=== PATIENT | female | born 1955 | race American Indian/Alaskan Native ===

== ENCOUNTER 2016-10-09 04:55 | Emergency (ER) | payer MEDICAID, OTHER ==
[2016-10-09 05:15] VITALS: TEMP 98.4
[2016-10-09 05:17] VITALS: O2SAT 98
--- NOTE | 2016-10-09 05:31 | C.PDOC ---
History Of Present Illness 61 y/o F c PMHx HTN p/w HTN since this morning. Patient states blood pressure was 200/100. She denies any symptoms. She states she just recently got out of a nursing home and has not taken her blood pressure medication in a year but is working on it "one thing at a time." Denies fever, chest pain, vision change, numbness, weakness. Time Seen by Provider: 10/09/16 05:24 Chief Complaint (Nursing): High Blood Pressure Past Medical History Vital Signs: Last Vital Signs Temp 98.4 F 10/09/16 04:58 Pulse 90 10/09/16 05:08 Resp 15 10/09/16 05:08 BP 168/97 H 10/09/16 05:08 Pulse Ox 98 10/09/16 05:31 - Medical History PMH: HTN, Hypercholesterolemia Family History: States: Unknown Family Hx - Social History Hx Alcohol Use: No Hx Substance Use: No - Immunization History Hx Tetanus Toxoid Vaccination: No Hx Influenza Vaccination: No Hx Pneumococcal Vaccination: No Review Of Systems Except As Marked, All Systems Reviewed And Found Negative. Constitutional: Negative for: Fever Cardiovascular: Negative for: Chest Pain Physical Exam - Physical Exam Appears: No Acute Distress Skin: Normal Color Head: Normacephalic Oral Mucosa: Moist Neck: Supple Cardiovascular: Rhythm Regular Respiratory: No Accessory Muscle Use Gastrointestinal/Abdominal: Soft Extremity: Other (L arm amputation) Neurological/Psych: Normal Speech, Normal Motor, Normal Sensation, Other (No focal deficit) ED Course And Treatment O2 Sat by Pulse Oximetry: 98 Medical Decision Making Medical Decision Making: Educated on HTN management and that it is typically asymptomatic. Patient states she will f/u with primary care. Instructed to return for chest pain, dyspnea, vision change, numbness, weakness, or any other problem. Disposition - Disposition Disposition: HOME/ ROUTINE Disposition Time: 05:30 Condition: STABLE Prescriptions: Carvedilol [Coreg] 6.25 mg PO BID #14 tab Instructions: Chronic Hypertension (ED) - Clinical Impression Clinical Impression: HTN (hypertension)
[2016-10-09 05:47] VITALS: BP 166/86; PULSE 83; RESP 20
== END 2016-10-09 06:00 | disposition home or self-care (01) ==
LOC: C.ER 04:55
DX: I10 Essential (primary) hypertension (principal)

== ENCOUNTER 2016-10-16 09:17 | Observation (INO) | payer SELFPAY ==
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
[2016-10-16 10:37] LABS: BASO # 0.1 K/uL (0.0-0.2); BASO % 0.8 % (0.0-2.0); EOS # 0.1 K/uL (0.0-0.7); EOS % 0.5 % (0.0-4.0); HEMOGLOBIN 14.1 g/dL (11.0-16.0); LYMPH # 2.4 K/uL (1.0-4.3); LYMPH % 18.3 % (20.0-40.0); MEAN CELL VOLUME 91.5 fL (81.0-99.0); MEAN CORPUSCULAR HEMOGLOBIN 30.1 pg (27.0-31.0); MEAN CORPUSCULAR HGB CONC 32.9 g/dL (33.0-37.0); MEAN PLATELET VOLUME 10.3 fL (7.2-11.7); MONO # 0.9 K/uL (0.0-0.8); MONO % 7.1 % (0.0-10.0); NEUT # 9.4 K/uL (1.8-7.0); NEUT % 73.3 % (50.0-75.0); NRBC % 0.1 % (0.0-2.0); RBC 4.68 Mil/uL (3.80-5.20); RED CELL DISTRIBUTION WIDTH 14.3 % (11.5-14.5); WHITE BLOOD COUNT 12.9 K/uL (4.8-10.8)
[2016-10-16 10:49] LABS: ALBUMIN 4.2 g/dL (3.5-5.0)
[2016-10-16 10:52] LABS: AST/SGOT 30 U/L (14-36); GFR AFRICAN-AMERICAN > 60; GFR NON-AFRICAN AMERICAN > 60
[2016-10-16 10:53] LABS: ALT/SGPT 19 U/L (9-52); BLOOD UREA NITROGEN 13 mg/dL (7-17); CALCIUM 9.4 mg/dl (8.6-10.4)
[2016-10-16 12:58] LABS: SQUAMOUS EPITHIAL 1 /hpf (0-5); URINE BILIRUBIN NEGATIVE (NEGATIVE); URINE BLOOD NEGATIVE (NEGATIVE); URINE CLARITY Clear (Clear); URINE COLOR Yellow (YELLOW); URINE GLUCOSE (UA) NORMAL (Normal); URINE LEUKOCYTE ESTERASE NEG Leu/uL (Negative); URINE NITRATE NEGATIVE (NEGATIVE); URINE PROTEIN NEGATIVE (NEGATIVE); URINE UROBILINOGEN NORMAL mg/dL (0.2-1.0)
[2016-10-16 13:05] LABS: BENZODIAZEPINES, UR NEGATIVE (NEGATIVE)
[2016-10-16 13:06] LABS: BARBITURATES, UR NEGATIVE (NEGATIVE)
[2016-10-16 13:07] LABS: OPIATES, UR NEGATIVE (NEGATIVE)
[2016-10-16 13:08] LABS: PHENCYCLIDINE, UR NEGATIVE (NEGATIVE)
--- NOTE | 2016-10-16 13:14 | RAD ---
HISTORY: for admit COMPARISON: No prior. FINDINGS: LUNGS: No active pulmonary disease. PLEURA: No significant pleural effusion identified, no pneumothorax apparent. CARDIOVASCULAR: Mild cardiomegaly. No congestive change. OSSEOUS STRUCTURES: No significant abnormalities. VISUALIZED UPPER ABDOMEN: Normal. OTHER FINDINGS: None. IMPRESSION: Mild cardiomegaly. No infiltrate.
[2016-10-17] MEDS ORDERED: Sodium Chloride 0.9% 500 ML IV ONE ×2 (08:13→08:35)
[2016-10-17] MEDS ORDERED: Iodixanol 320 MG/ML 100 ML BOTTLE IV ONE (11:44)
--- NOTE | 2016-10-17 12:26 | CT ---
CT abdomen and pelvis History: Diffuse abdominal pain. Distention. Comparison: None available. Technique: Multiple contiguous axial images were performed through the abdomen and pelvis with the use of intravenous contrast. Subsequently sagittal and coronal reformatted images were obtained. This CT exam was performed using one or more of the following dose reduction techniques: Automated exposure control, adjustment of the mA and/or kV according to patient size, and/or use of iterative reconstruction technique. Findings: Liver and gallbladder are preserved. Spleen is preserved. Adrenal glands are preserved. Pancreas is preserved. Thickening of the stomach. Exophytic 1 centimeter lesion off the upper to midpole of the right kidney demonstrating a Hounsfield unit attenuation of 97, indeterminate. Underlying solid renal lesion cannot be excluded. Correlation with multiphasic CT or MR may be helpful for further evaluation if clinically indicated. Diffuse distention of the urinary bladder. Fecal retention in the colon. Prominent midline abdominal wall hernia with the mouth of the hernia measuring approximately 2.6 centimeters. A portion of the transverse colon extends through the abdominal wall defect into the hernia sac. Appendix not well visualized. Some motion artifact, limits evaluation. Focal nodular consolidation at the right lung base posteriorly. Degenerative changes in the spine with minimal anterolisthesis of L4 on L5 and posterior disc osteophyte complexes at the L4-5 and L5-S1 levels. Impression: 1. Prominent midline abdominal wall hernia with the mouth of the hernia measuring approximately 2.6 centimeters. A portion of the transverse colon extends through the abdominal wall defect into the hernia sac. 2. Thickening of the stomach. Clinical correlation. 3. Exophytic 1 centimeter lesion off the upper to midpole of the right kidney demonstrating a Hounsfield unit attenuation of 97, indeterminate. Underlying solid renal lesion cannot be excluded. Correlation with multiphasic CT or MR may be helpful for further evaluation if clinically indicated. 4. Focal nodular consolidation at the right lung base posteriorly. 5. Degenerative changes in the spine with minimal anterolisthesis of L4 on L5 and posterior disc osteophyte complexes at the L4-5 and L5-S1 levels.
--- NOTE | 2016-10-17 13:47 | RAD ---
Abdomen four views History: Abdominal pain. Comparison: None available. Findings: Moderate fecal retention in the colon. Relative paucity of small bowel gas. Venous congestion. Mild patchy increased markings at the left base. Scoliotic curvature and degenerative changes in the spine. Impression: Moderate fecal retention in the colon.
[2016-10-17 13:54] VITALS: TEMP 98.7
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
[2016-10-17 17:08] VITALS: O2SAT 99
[2016-10-17 19:38] VITALS: BP 145/92; PULSE 95; RESP 18
--- NOTE | 2016-10-19 10:49 | CARD ---
APPROVED REPORT EKG Measurement Heart [id number] <Conclusion> Sinus tachycardia Possible Left atrial enlargement Right axis deviation Left ventricular hypertrophy T wave abnormality, consider inferior ischemia Abnormal ECG
== END 2016-10-17 19:39 | disposition short-term general hospital (02) ==
LOC: C.ER 09:17 → C.9OBSV 12:20 → UNDOADMOB 15:56 → C.9OBSV 15:56
PROVIDERS: ADMIT Emergency Medicine; ATTEND Emergency Medicine
DX: F25.9 Schizoaffective disorder, unspecified (principal); F31.9 Bipolar disorder, unspecified; I10 Essential (primary) hypertension; E78.00 Pure hypercholesterolemia, unspecified; K59.00 Constipation, unspecified; Z87.891 Personal history of nicotine dependence; Z91.14 Patient's other noncompliance with medication regimen; Z89.021 Acquired absence of right finger(s); Z89.232 Acquired absence of left shoulder
CPT/HCPCS: 36415; 71010; 74022; 74177; 80053; 81001; 82948; 83690; 85025; 96372; 96374; 99285; G0480; J1885; J2405; J3486; J7040; Q9967